=== PATIENT | male | born 1970 | race Caucasian/White ===

== ENCOUNTER 2016-08-10 11:54 | Day surgery (SDC) | payer BC ==
[~2016-08-10] VITALS: Ht 177.8 cm; Wt 83.9 kg
[~2016-08-10 11:54] MED LIST: ASPIRIN325 MG PO; CALCIUM ACETAT667 M2 PO; CLONIDINE HCL0.2 MG PO; DOXAZOSIN MESYLA2 MG PO; FAMOTIDINE20 MG PO; FUROSEMIDE40 MG PO; METOPROLOL TAR100 MG PO; MINOXIDIL2.5 MG PO; NIFEDIPINE ER60 MG PO; NORCO 5/3251 TABLET PO; ROCALTROL0.25 MCG PO; [UNRECOGNIZED DRUG - REMARK]
[2016-08-10 12:29] VITALS: BP 130/73
[2016-08-10 12:37] LABS: MCH 30.9 PG (29.0-34.0); MCHC 35.6 G/DL (30.0-36.0); MCV 86.8 FL (86-99); MEAN PLAT.VOLUME 9.3 uM^3 (9.0-12.4); PLATELET COUNT 354 K/uL (156-360); RBC DIS.WIDTH-CV 14.2 % (11.8-14.6); RBC DIS.WIDTH-SD 44.5 % (39-53); RED BLOOD COUNT 2.88 M/uL (4.00-5.50); WHITE BLOOD COUNT 20.5 K/uL (4.1-10.2)
[2016-08-10] MEDS ORDERED: AZITHROMYCIN250 MG PO (12:45)
[2016-08-10 13:17] LABS: ANION GAP 29 MEQ/L (2-14); CHLORIDE 89 MEQ/L (99-109); GFR ESTIMATE (CALCULATED) 3 mL/min/; GLUCOSE 119 mg/dL (70-99); POTASSIUM 4.4 MEQ/L (3.7-5.4); SAMPLE HEMOLYSIS CHECK 0; SAMPLE ICTERIC CHECK 0; SAMPLE LIPEMIA CHECK 0; SODIUM 130 MEQ/L (136-147)
[2016-08-10 13:18] LABS: UREA NITROGEN (BUN) 164 mg/dL (9-23)
[2016-08-10 17:26] VITALS: BP 160/90
== END 2016-08-10 17:29 | disposition home or self-care (01) ==
LOC: SDC 11:54
PROVIDERS: Surgery
PROC: 0JWT33Z Revision of Infusion Device in Trunk Subcutaneous Tissue and Fascia, Percutaneous Approach (ICD-10-PCS; principal; 2016-08-10)
DX: I13.2 Hypertensive heart and chronic kidney disease with heart failure and with stage 5 chronic kidney disease, or end stage renal disease (principal); N18.6 End stage renal disease; I50.9 Heart failure, unspecified; J44.9 Chronic obstructive pulmonary disease, unspecified; Z83.3 Family history of diabetes mellitus; D50.9 Iron deficiency anemia, unspecified; N25.81 Secondary hyperparathyroidism of renal origin; K21.9 Gastro-esophageal reflux disease without esophagitis; E53.9 Vitamin B deficiency, unspecified; Z87.891 Personal history of nicotine dependence
CPT/HCPCS: 80048; 85027; J0690; J2250; J3010; S0020